=== PATIENT | female | born 1950 | race Caucasian/White ===

== ENCOUNTER 2018-11-13 11:58 | Outpatient (CLI) | payer BC, OTHER ==
--- NOTE | 2018-11-13 13:29 | ULT ---
BILATERAL RENAL ULTRASOUND COMPLETE: HISTORY: Right lower quadrant back pain for 1 week. FINDINGS: The right kidney measures 10.6 x 3.4 x 6.0 cm. The left kidney measures 10.6 x 4.9 x 4.8 cm. No evidence for postvoid residual. The bladder is unremarkable. In addition, there was evaluation of a palpable finding in the right abdomen region which shows no ev idence for overt bowel containing anterior abdominal wall hernia. No renal hydronephrosis or perinep hric process. No solid or cystic renal mass. IMPRESSION: Unremarkable bilateral renal ultrasound. POS: [facility]
== END 2018-11-13 11:59 | disposition home or self-care (01) ==
LOC: NAV ULT 11:58
PROVIDERS: ATTEND Family Medicine
DX: R10.31 Right lower quadrant pain (principal); M54.9 Dorsalgia, unspecified
CPT/HCPCS: 76770